=== PATIENT | female | born 1975 | race Hispanic/Latino ===

== ENCOUNTER 2024-01-30 18:07 | Observation (INO) | payer BC ==
[2024-01-30] MEDS ORDERED: ASPIRIN 81 MG CHEWABLE TABLET ONE (18:42)
[2024-01-30] MEDS ORDERED: NITROGLYCERIN 0.4 MG/TAB SL ONE (18:42)
[2024-01-30 18:43] LABS: Absolute Eosinophils 0.1 K/uL (0-0.5); Absolute Lymphocytes (CBC) 2.4 K/uL (0.7-4.9); Absolute Monocytes 0.5 K/uL (0.1-1.3); Absolute Neutrophil 4.4 K/uL (1.8-8.0); Basophils % 0.6 % (0-1.3); Hematocrit 40.6 % (36.0-45.0); Hemoglobin 13.2 g/dL (12.0-15.0); Lymphocytes % 31.9 % (15.3-44.8); MCH 29.9 pg (27.0-35.0); MCHC 32.6 g/dL (32.0-36.0); MCV 91.9 fL (80-100); MPV 9.9 fL (7.6-11.3); Monocytes % 6.2 % (3.3-12.3); Neutrophils % 59.3 % (41.7-73.7); Platelets 223 thou/uL (152-406); RBC Red Blood Cell Count 4.42 M/uL (3.86-4.86)
[2024-01-30 18:48] LABS: PT Prothrombin Time 10.5 SECONDS (9.4-12.5); Protime INR 0.94
[2024-01-30 19:04] LABS: ALT/SGPT 32 U/L (13-56); Albumin 3.8 g/dL (3.4-5.0); Albumin/Globulin Ratio 1.1 (1.1-1.8); Alkaline Phosphatase 142 U/L (45-117); BUN Blood Urea Nitrogen 15 mg/dL (7-18); Bicarbonate 24 mEq/L (21-32); Bilirubin Total 0.2 mg/dL (0.2-1.0); Globulin 3.5 g/dL (2.3-3.5); Glomerular Filtration Rate 76 ml/min (=/>90); Glucose Level 151 mg/dL (74-106); NT PRO-BNP 36 pg/mL (<125); Protein, Total 7.3 g/dL (6.4-8.2); Sodium Level 139 mEq/L (136-145); Troponin High Sensitivity 4.1 pg/mL (<58.9)
[2024-01-30 19:06] LABS: AST/SGOT 20 U/L (15-37); Bilirubin Direct < 0.2 mg/dL (0-0.2); Magnesium 1.9 mg/dL (1.6-2.4)
--- NOTE | 2024-01-30 20:15 | RAD REPORT ---
EXAM DESCRIPTION: US - Extremity Venous Uni Ltd - 01/30/2024 7:09 pm CLINICAL HISTORY: Pain COMPARISON: None. TECHNIQUE: Real-time sonographic evaluation of the right lower extremity deep venous system was perf ormed. FINDINGS: Normal compressibility, flow augmentation, phasic flow and spontaneous flow is identified in the right lower extremity deep venous system. No intraluminal filling defects seen. IMPRESSION: No DVT in the right lower extremity.
--- NOTE | 2024-01-30 20:15 | RAD REPORT ---
EXAM DESCRIPTION: Roberta Single View01/30/2024 6:37 pm CLINICAL HISTORY: CHEST PAIN COMPARISON: No comparisons TECHNIQUE: Portable AP view of the chest. FINDINGS: The lungs are clear. No pneumothorax or effusion. The cardiomediastinal contours are unre markable. IMPRESSION: No acute cardiopulmonary process.
--- NOTE | 2024-01-30 20:31 | RAD REPORT ---
EXAM DESCRIPTION: CT - Chest For Pe Angio - 01/30/2024 7:50 pm CLINICAL HISTORY: Chest pain;Dyspnea COMPARISON: No comparisons TECHNIQUE: Thin axial CT images of the chest were obtained following administration of iodinated co ntrast intravenously. Multiplanar reconstructions, and maximum intensity projection reconstructions w ere generated and reviewed. Exam utilizes a protocol for optimal evaluation of pulmonary arterial yuly e. All CT scans are performed using dose optimization technique as appropriate and may include automated exposure control or mA/KV adjustment according to patient size. FINDINGS: Pulmonary arteries are normal. No emboli or other suspicious finding. No acute or signific ant aorta findings. No mass or infiltrate in the lung parenchyma, although exclusion of the posterior lung bases limits e valuation. No pleural thickening or pleural effusion. No pneumothorax. No abnormal mediastinal or hilar masses or lymphadenopathy seen. No chest wall mass or abnormal axill iary lymphadenopathy. IMPRESSION: No evidence of acute central pulmonary emboli. No other acute findings are identified on this CT study.
[2024-01-30] MEDS ORDERED: HYDROCODONE/APAP 7.5/325 MG TAB ONE (20:37)
--- NOTE | 2024-01-30 21:03 | ER ---
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 21:51 Coronavirus screen: At this time, the client does not indicate any symptoms associated al5 with coronavirus-19. Ebola Screen: No symptoms or risks identified at this time. Initial Sepsis Screen: Does the patient meet any 2 criteria? No. Patient's initial sepsis screen is negative. Does the patient have a suspected source of infection? No. Patient's initial sepsis screen is negative. Risk Assessment: Do you want to hurt yourself or someone else? Patient reports no desire to harm self or others. 21:51 Acuity: LAUREL 2 al5 21:51 Method Of Arrival: Ambulatory al5 21:52 Onset of symptoms was January 30, 2024. al5 Triage Assessment: 18:18 General: Appears distressed, uncomfortable, Behavior is cooperative, anxious. Pain: db Complains of pain in chest. Neuro: Level of Consciousness is awake, alert, obeys commands, Oriented to person, place, time, situation, Speech is normal. Cardiovascular: Capillary refill < 3 seconds Patient's skin is warm and dry. Respiratory: Reports shortness of breath Airway is patent Respiratory effort is even, unlabored, Respiratory pattern is regular, symmetrical, Breath sounds are clear Onset: The symptoms/episode began/occurred just prior to arrival. 21:52 Respiratory: the patient has mild shortness of breath. 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 - Infectious Disease History:: Denies. - Social history:: Smoking status: Patient denies any tobacco usage or history of. Screenin:51 [facility] ED Fall Risk Assessment (Adult) History of falling in the last 3 months, ko1 including since admission No falls in past 3 months (0 pts) Confusion or Disorientation No (0 pts) Intoxicated or Sedated No (0 pts) Impaired Gait No (0 pts) Mobility Assist Device Used No (0 pt) Altered Elimination No (0 pt) Score/Fall Risk Level 0 - 2 = Low Risk Oriented to surroundings, Maintained a safe environment, Educated pt \T\ family on fall prevention, incl call for assistance when getting out of bed, Assessed \T\ reinforced patient's understanding of fall precautions, Hourly rounding (assess needs \T\ fall precautionary measures) done. Abuse screen: Denies threats or abuse. Denies injuries from another. Nutritional screening: No deficits noted. Tuberculosis screening: No symptoms or risk factors identified. Assessment: 18:51 General: Appears uncomfortable, obese, Behavior is cooperative, anxious, drowsy. Pain: ko1 Complains of pain in right leg. Neuro: No deficits noted. Cardiovascular: Reports chest pain, Rhythm is regular. Respiratory: No deficits noted. Airway is patent Trachea midline Respiratory effort is even, unlabored, Respiratory pattern is regular, symmetrical. GI: No deficits noted. : No deficits noted. EENT: No deficits noted. Derm: No deficits noted. Musculoskeletal: No deficits noted. 19:50 General: Appears in no apparent distress. Behavior is calm, cooperative. Pain: al5 Complains of pain in right leg. Neuro: Level of Consciousness is awake, alert, obeys commands, Oriented to person, place, time, situation. Cardiovascular: Reports chest pain, Capillary refill < 3 seconds Patient's skin is warm and dry. Respiratory: Airway is patent Respiratory effort is even, unlabored, Respiratory pattern is regular, symmetrical. GI: No signs and/or symptoms were reported involving the gastrointestinal system. : No signs and/or symptoms were reported regarding the genitourinary system. EENT: No signs and/or symptoms were reported regarding the EENT system. Derm: Skin is intact, Skin is pink, warm \T\ dry. normal. Musculoskeletal: Reports pain in right leg. 21:00 Reassessment: Patient appears in no apparent distress at this time. No changes from al5 previously documented assessment. Patient and/or family updated on plan of care and expected duration. Pain level reassessed. Patient is alert, oriented x 3, equal unlabored respirations, skin warm/dry/pink. 22:00 Reassessment: Patient appears in no apparent distress at this time. Patient and/or al5 family updated on plan of care and expected duration. Pain level reassessed. Patient is alert, oriented x 3, equal unlabored respirations, skin warm/dry/pink. Patient states feeling better. 23:00 Reassessment: Patient appears in no apparent distress at this time. No changes from al5 previously documented assessment. Patient and/or family updated on plan of care and expected duration. Pain level reassessed. Patient is alert, oriented x 3, equal unlabored respirations, skin warm/dry/pink. Vital Signs: 18:13 BP 211 / 98; Pulse 77; Resp 16; Temp 98.5(O); Pulse Ox 97% on R/A; db 18:51 BP 155 / 99; Pulse 72; Resp 15; Pulse Ox 98% ; ko1 19:00 BP 152 / 88; Pulse 75; Resp 18; Pulse Ox 99% on R/A; al5 19:30 BP 115 / 70; Pulse 70; Resp 16; Pulse Ox 99% on R/A; al5 20:00 BP 141 / 79; Pulse 67; Resp 16; Pulse Ox 100% on R/A; al5 20:30 BP 115 / 71; Pulse 65; Resp 18; Pulse Ox 99% on R/A; al5 20:33 Weight 117.93 kg; Height 5 ft. 6 in. ; al5 21:30 BP 151 / 51; Pulse 66; Resp 18; Pulse Ox 97% on R/A; al5 20:33 Body Mass Index 41.96 (117.93 kg, 167.64 cm) al5 ED Course: 18:08 Patient arrived in ED. im 18:08 Gauri Flores PA-C is PHCP. sb4 18:08 Rodney Bird MD is Attending Physician. sb4 18:18 Arm band placed on Patient placed in waiting room. db 18:25 Initial lab(s) drawn, by me, sent to lab. EKG done, by ED staff, reviewed by Gauri Flores PA-C. 18:29 Inserted saline lock: 20 gauge in right antecubital area, using aseptic technique. db Blood collected. Flushed with 10 mL NS. 18:39 XRAY Chest (1 view) In Process Unspecified. EDMS 18:51 Patient has correct armband on for positive identification. Bed in low position. Call ko1 light in reach. Side rails up X2. Provided Education on: meds. Pulse ox on. NIBP on. Door closed. Noise minimized. Lights dimmed. Warm blanket given. Pillow given. 18:54 Ashleigh Hatfield, RN is Primary Nurse. ko1 19:11 Extremity Venous Uni Ltd US In Process Unspecified. EDMS 19:52 CT Chest For PE Angio In Process Unspecified. EDMS 21:02 Carlos Alberto Bautista MD is Hospitalizing Provider. sb4 21:52 Triage completed. al5 21:52 No provider procedures requiring assistance completed. al5 23:43 Patient admitted, IV remains in place. al5 Administered Medications: 18:51 Drug: Aspirin PO Chewable Tablet 162 mg PO once Route: PO; ko1 20:26 Follow up: Response: No adverse reaction; Marked relief of symptoms al5 18:51 Drug: Nitroglycerin Sublingual 0.4 mg Sublingual once; every five minute if needed x3 ko1 Route: Sublingual; 20:26 Follow up: Response: No adverse reaction; Marked relief of symptoms al5 20:42 Drug: Hydrocodone-Acetaminophen PO (7.5 mg-325 mg) 1 tabs PO once Route: PO; al5 21:52 Follow up: Response: No adverse reaction; Pain is decreased al5 23:42 Follow up: Response: No adverse reaction; Pain is decreased al5 Medication: 18:51 VIS not applicable for this client. ko1 Outcome: 21:02 Decision to Hospitalize by Provider. sb4 01/30 00:17 Admitted to Med/surg accompanied by nurse, via wheelchair, room 415, with chart, Report al5 called to adal Condition: good Instructed on the need for admit, 00:18 Patient left the ED. al5 Signatures: Dispatcher [employer] EDMN Ashleigh Hatfield, RN RN ko1 Christina Maciel RN Gauri Amaya PA-C PAPerla sb4 Tamika Berg Amanda, RN RN al5 Corrections: (The following items were deleted from the chart) 01/29 20:26 20:26 Nitroglycerin Sublingual 0.4 mg Sublingual al5 al5 23:53 23:50 General: Appears in no apparent distress. Behavior is calm, cooperative, al5 [facility] :53 23:50 Pain: Complains of pain in right leg al5 [facility] :53 23:50 Neuro: Level of Consciousness is awake, alert, obeys commands, Oriented to al5 person, place, time, situation, [facility] 53 23:50 Cardiovascular: Capillary refill < 3 seconds Patient's skin is warm and dry. al5 [facility] :53 23:50 Respiratory: Airway is patent Respiratory effort is even, unlabored, Respiratory al5 pattern is regular, symmetrical, [facility] :53 23:50 Cardiovascular: Reports chest pain, al5 [facility] :53 23:50 GI: No signs and/or symptoms were reported involving the gastrointestinal system. al5 [facility] :53 23:50 : No signs and/or symptoms were reported regarding the [facility]ourinary system. [facility] EENT: No signs and/or symptoms were reported regarding the EENT system. al5 [facility] :53 23:50 Derm: Skin is intact, Skin is pink, warm \T\ dry. normal, Skin temperature is warm al5 [facility] :53 23:50 Musculoskeletal: Reports pain in right leg al al
--- NOTE | 2024-01-30 21:03 | EDPHYS ---
Physician Documentation [facility] Name: Mojgan Ford Age: 48 yrs Sex: Female : 1975 Arrival Date: 01/30/2024 Time: 18:07 Bed 16 Private MD: ED Physician Rodney Bird HPI: 01/29 18:21 This 48 yrs old Female presents to ER via Unassigned with complaints of Shortness Of sb4 Breath, Leg Pain, Chest Pressure. 18:21 The patient or guardian reports chest pain that is located primarily in the substernal sb4 area. Onset: just prior to arrival. The pain radiates to the left arm, left jaw. Associated signs and symptoms: Pertinent positives: dizziness, lightheadedness, shortness of breath. The chest pain is described as a heaviness. Modifying factors: The symptoms are alleviated by nothing. the symptoms are aggravated by nothing. The patient has not experienced similar symptoms in the past. 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 - Infectious Disease History:: Denies. - Social history:: Smoking status: Patient denies any tobacco usage or history of. ROS: 18:24 Constitutional: Negative for fever, chills, and weight loss, sb4 18:24 Cardiovascular: Positive for chest pain, 18:24 Respiratory: Positive for shortness of breath, 18:24 MS/extremity: Positive for pain, of the right leg, 18:24 Neuro: Positive for dizziness, 18:24 All other systems are negative, Exam: 18:24 Head/Face: Normocephalic, atraumatic. Eyes: Extra-ocular motions intact. Periorbital sb4 areas with no swelling, redness, or edema. ENT: Mucous membranes moist. Cardiovascular: Regular rate and rhythm with a normal S1 and S2. Abdomen/GI: Soft, non-tender, no distension. Skin: Warm, dry with normal turgor. Normal color with no rashes, no lesions, and no evidence of cellulitis. MS/ Extremity: Pulses equal, no cyanosis. Neurovascular intact. Full, normal range of motion. 18:24 Constitutional: The patient appears alert, awake, anxious, in obvious distress, moderately distressed, uncomfortable, 18:24 Respiratory: mild respiratory distress is noted, Respirations: normal, Breath sounds: are clear throughout, 18:26 Musculoskeletal/extremity: DVT Exam: no tenderness, negative Homans' sign noted on sb4 exam, no appreciated bluish discoloration, no erythema, no increased warmth, pain, swelling, Vital Signs: 18:13 BP 211 / 98; Pulse 77; Resp 16; Temp 98.5(O); Pulse Ox 97% on R/A; db 18:51 BP 155 / 99; Pulse 72; Resp 15; Pulse Ox 98% ; ko1 19:00 BP 152 / 88; Pulse 75; Resp 18; Pulse Ox 99% on R/A; al5 19:30 BP 115 / 70; Pulse 70; Resp 16; Pulse Ox 99% on R/A; al5 20:00 BP 141 / 79; Pulse 67; Resp 16; Pulse Ox 100% on R/A; al5 20:30 BP 115 / 71; Pulse 65; Resp 18; Pulse Ox 99% on R/A; al5 20:33 Weight 117.93 kg; Height 5 ft. 6 in. ; al5 21:30 BP 151 / 51; Pulse 66; Resp 18; Pulse Ox 97% on R/A; al5 20:33 Body Mass Index 41.96 (117.93 kg, 167.64 cm) al5 MDM: 18:13 Patient medically screened. sb4 20:32 The patient was given aspirin in the Emergency Department. Scoring Tools HEART Score: sb4 History: ECG: Age: Risk Factors: 1 or 2 risk factors (1), Troponin: Total Score = 4. 21:02 Data reviewed: vital signs, nurses notes, lab test result(s), EKG, radiologic studies, sb4 and as a result, I will admit patient. Consideration of Admission/Observation Patient was admitted/placed on observation. Counseling: I had a detailed discussion with the patient and/or guardian regarding the historical points, exam findings, and any diagnostic results supporting the discharge/admit diagnosis, the presence of at least one elevated blood pressure reading (>120/80) during this emergency department visit, lab results, radiology results, the need for further work-up and treatment in the hospital. 01/29 18:19 Order name: Basic Metabolic Panel; Complete Time: 19:07 sb4 01/29 18:19 Order name: CBC with Diff; Complete Time: 18:49 sb4 01/29 18:19 Order name: LFT's; Complete Time: 19:07 sb4 01/29 18:19 Order name: Magnesium; Complete Time: 19:07 sb4 01/29 18:19 Order name: NT PRO-BNP; Complete Time: 19:07 sb4 01/29 18:19 Order name: PT-INR; Complete Time: 18:49 sb4 01/29 18:19 Order name: Troponin HS; Complete Time: 19:07 sb4 01/29 21:35 Order name: Urinalysis w/ reflexes EDMS 01/29 21:35 Order name: CBC with Automated Diff EDMS 01/29 21:35 Order name: CBC with Automated Diff EDMS 01/29 21:35 Order name: Comprehensive Metabolic Panel EDMS 01/29 21:36 Order name: Comprehensive Metabolic Panel EDMS 01/29 21:36 Order name: Troponin High Sensitivity EDMS 01/29 21:36 Order name: Troponin High Sensitivity EDMS 01/29 21:36 Order name: Troponin High Sensitivity EDMS 01/29 21:36 Order name: Troponin High Sensitivity EDMS 01/29 18:19 Order name: XRAY Chest (1 view); Complete Time: 20:17 sb4 01/29 18:20 Order name: CT Chest For PE Angio; Complete Time: 20:31 sb4 01/29 18:20 Order name: Extremity Venous Uni Ltd US; Complete Time: 20:17 sb4 01/29 18:19 Order name: EKG; Complete Time: 18:20 sb4 01/29 18:19 Order name: Cardiac monitoring; Complete Time: 18:41 sb4 01/29 18:19 Order name: EKG - Nurse/Tech; Complete Time: 18:29 sb4 01/29 18:19 Order name: IV Saline Lock; Complete Time: 18:29 sb4 01/29 18:19 Order name: Labs collected and sent; Complete Time: 18:29 sb4 01/29 18:19 Order name: O2 Per Protocol; Complete Time: 18:41 sb4 01/29 18:19 Order name: O2 Sat Monitoring; Complete Time: 18:41 sb4 EC:22 Rate is 73 beats/min. Rhythm is regular, Sinus Rhythm with Occasional PVCs. UT interval sb4 is normal at 160 msec. QRS interval is normal at 90 msec. QT interval is normal at 410 msec. No Q waves. T waves are Normal. No ST changes noted. Clinical impression: No evidence of ischemia. Interpreted by me. Reviewed by me. Administered Medications: 18:51 Drug: Aspirin PO Chewable Tablet 162 mg PO once Route: PO; ko1 20:26 Follow up: Response: No adverse reaction; Marked relief of symptoms al5 18:51 Drug: Nitroglycerin Sublingual 0.4 mg Sublingual once; every five minute if needed x3 ko1 Route: Sublingual; 20:26 Follow up: Response: No adverse reaction; Marked relief of symptoms al5 20:42 Drug: Hydrocodone-Acetaminophen PO (7.5 mg-325 mg) 1 tabs PO once Route: PO; al5 21:52 Follow up: Response: No adverse reaction; Pain is decreased al5 23:42 Follow up: Response: No adverse reaction; Pain is decreased al5 Disposition Summary: 01/30/24 21:02 Hospitalization Ordered Notes: Hospitalization Status: Observation sb4 Provider: Carlos Alberto Bautista Location: Telemetry/MedSurg (observation) sb4 Condition: Fair sb4 Problem: new sb4 Symptoms: have improved sb4 Bed/Room Type: Standard sb4 Room Assignment: 415(01/30/24 23:02) Diagnosis - Chest pain, unspecified sb4 - Essential (primary) hypertension sb4 Forms: - Medication Reconciliation Form sb4 - SBAR form sb4 - Leadership Thank You Letter sb4 Addendum: 02/01/2024 09:44 I was immediately available for consultation during this patient's visit. I did not e c2 personally see the patient or discuss the patient with the LORENZO. . Signatures: Dispatcher [employer] Jessenia Dye RN RN cg Ashleigh Hatfield RN RN ko1 Christina Maciel RN RN db Brown, Sophia, ANTONIA KNIGHT sb4 Rodney Bird MD MD ec2 Linda Barnes RN RN al5 Corrections: (The following items were deleted from the chart) 01/29 18:20 18:20 Extremity Venous Uni Ltd+[email or web address] ordered. EDMS EDMS 23:02 21:02 sb4 cg
--- NOTE | 2024-01-30 21:30 | P.HP ---
Certification for Inpatient Patient admitted to: Observation With expected LOS: <2 Midnights Practitioner: I am a practitioner with admitting privileges, knowledge of patient current condition, hospital course, and medical plan of care. Services: Services provided to patient in accordance with Admission requirements found in Title 42 Section 412.3 of the Code of Federal Regulations Patient History Date of Service: 01/31/24 Reason for admission: chest Pain History of Present Illness: 48 yrs old Female with past medical history of hypertension and asthma was brought to ER with Shortness Of Breath, Leg Pain, Chest Pressure. The patient states that chest pain is located primarily in the substernal area which started today, the pain radiates to the left arm, left jaw. Associated with dizziness and lightheadedness. Chest pain is described as heaviness. No change positions. No previous history of the history. No fever or chills. Denies any diaphoresis. No nausea vomiting or diarrhea. No sick contacts. The patient was assessed in the ER and is admitted for further management of chest pain rule out ACS Allergies No Known Allergies Allergy (Unverified 01/31/24 00:42) - Past Medical/Surgical History Past Medical History: Reviewed- Non-Contributory -: Hypertension, asthma Past Surgical History: Reviewed- Non-Contributory - Family History Family History: Reviewed- Non-Contributory - Social History Smoking Status: Never smoker Review of Systems 10-point ROS is otherwise unremarkable Physical Examination - Vital Signs Temperature: 98.5 F Blood Pressure: 210/98 Pulse: 76 Respirations: 18 Pulse Ox (%): 94 - Physical Exam General: Alert, Oriented x3, Mild distress HEENT: Atraumatic, Normocephalic Neck: Supple, 2+ carotid pulse no bruit Respiratory: Clear to auscultation bilaterally, Normal air movement Cardiovascular: Normal pulses, Regular rate/rhythm, Normal S1 S2 Capillary refill: <2 Seconds Gastrointestinal: Soft and benign, W/out hepatosplenomegaly Musculoskeletal: No clubbing, No swelling Integumentary: No rashes, No breakdown Neurological: Normal speech, Normal strength at 5/5 x4 extr, Sensation intact, Cranial nerves 3-12 intact Lymphatics: No axilla or inguinal lymphadenopathy - Studies Laboratory Data (last 24 hrs) 01/30/24 01/30/24 01/30/24 18:25 18:25 18:25 WBC 7.50 Hgb 13.2 Hct 40.6 Plt Count 223 PT 10.5 INR 0.94 Sodium 139 Potassium 4.0 BUN 15 Creatinine 0.92 Glucose 151 H Magnesium 1.9 Total Bilirubin 0.2 AST 20 ALT 32 Alkaline Phosphatase 142 H Assessment and Plan - Plan Chest pain rule out ACS Will trend cardiac enzymes Will monitor telemetry Started on aspirin and statin EKG did not show any acute changes suggestive of ischemia Patient denies any chest pain Will get an echocardiogram Cardiology consult Hypertensive urgency Hydralazine as needed Antihypertensives titrated Continue home medications and titrate as needed Hyperlipidemia Continue statin GI/DVT prophylaxis Advanced directive full code Discharge Plan: Home Plan to discharge in: 48 Hours - Advance Directives Does patient have a Living Will: No Does patient have a Durable POA for Healthcare: No - Code Status/Comfort Care Code Status: Full Code Time Spent Managing Pts Care (In Minutes): 48
[2024-01-30] MEDS ORDERED: ONDANSETRON 4 MG/2 ML VIAL IV PRN (21:31)
[2024-01-30] MEDS: ASPIRIN EC 81 MG TAB PO SCH (21:34)
[2024-01-30] MEDS ORDERED: HYDROCODONE/APAP 5/325 MG TAB PO PRN (21:35)
[2024-01-31 00:29] VITALS: O2SAT 97
[2024-01-31] MEDS ORDERED: HYDRALAZINE HCL 20 MG/ML VIAL IV PRN (01:02)
[2024-01-31] MEDS: MORPHINE 2 MG/ML SYR IV PRN (01:47)
[2024-01-31 03:35] VITALS: BMI 41.9
[2024-01-31 06:13] LABS: Absolute Eosinophils 0.2 K/uL (0-0.5); Absolute Lymphocytes (CBC) 2.6 K/uL (0.7-4.9); Absolute Monocytes 0.5 K/uL (0.1-1.3); Absolute Neutrophil 2.9 K/uL (1.8-8.0); Basophils % 0.5 % (0-1.3); Eosinophils % 2.5 % (0-4.4); Hematocrit 37.9 % (36.0-45.0); Hemoglobin 12.7 g/dL (12.0-15.0); Lymphocytes % 42.7 % (15.3-44.8); MCH 30.4 pg (27.0-35.0); MCHC 33.5 g/dL (32.0-36.0); MCV 90.7 fL (80-100); MPV 9.5 fL (7.6-11.3); Monocytes % 7.8 % (3.3-12.3); Neutrophils % 46.5 % (41.7-73.7); Nucleated Red Blood Cells % 0.2 % (0-0); Platelets 213 thou/uL (152-406); RBC Red Blood Cell Count 4.18 M/uL (3.86-4.86); Red Cell Distribution Width 13.8 % (12.1-15.2)
[2024-01-31 06:32] LABS: Albumin 3.3 g/dL (3.4-5.0); Albumin/Globulin Ratio 1.1 (1.1-1.8); Bilirubin Total 0.4 mg/dL (0.2-1.0); Globulin 3.1 g/dL (2.3-3.5); Protein, Total 6.4 g/dL (6.4-8.2)
[2024-01-31] MEDS: ENOXAPARIN 40 MG/0.4 ML SQ SCH (09:23)
[2024-01-31 12:56] LABS: Sqamous Epithelial <5 /HPF (None Seen); Urine Bacteria <20 /HPF (<20); Urine Bilirubin NEGATIVE (Negative); Urine Blood Negative (Negative); Urine Clarity Turbid (Clear); Urine Color Light-Yellow (Yellow); Urine Culture Reflex Order NOT NEEDED; Urine Glucose NEGATIVE (Negative); Urine Ketones NEGATIVE (Negative); Urine Microscopic Reflex YN ORDER UMIC; Urine Mucus Slight /HPF (None Seen); Urine Nitrite NEGATIVE (Negative); Urine Protein NEGATIVE (Negative); Urine RBC <5 /HPF (None Seen); Urine Urobilinogen Normal (Normal); Urine WBC <5 /HPF (<5)
[2024-01-31] MEDS: ACETAMINOPHEN 325 MG TABLET PO PRN (14:54)
--- NOTE | 2024-01-31 16:06 | P.CNS ---
Date of Consult: 01/31/24 Chief Complaint: chest Pain History of Present Illness: Patient presented with palpitations, chest pain, mid chest to upper epigastric area, no radiation, got relieved in the ER by morphine and NTG, patient has been under stress, denies SOB, no VOGEL, no syncope. Allergies No Known Allergies Allergy (Unverified 01/31/24 00:42) Home medications list reviewed: Yes - Past Medical/Surgical History -: Hypertension, asthma - Social History Alcohol use: No Caffeine use: No Place of Residence: Home Review of Systems 10-point ROS is otherwise unremarkable Physical Examination Temp Pulse Resp BP Pulse Ox 97.6 F 66 18 107/64 96 01/31/24 12:00 01/31/24 12:00 01/31/24 12:00 01/31/24 12:00 01/31/24 12:00 General: Alert, In no apparent distress HEENT: Atraumatic, PERRLA, Mucous membr. moist/pink, EOMI, Sclerae nonicteric Neck: Supple, 2+ carotid pulse no bruit, No LAD, Without JVD or thyroid abnormality Respiratory: Clear to auscultation bilaterally, Normal air movement Cardiovascular: Regular rate/rhythm, Normal S1 S2 Gastrointestinal: Normal bowel sounds, No tenderness Musculoskeletal: No tenderness Integumentary: No rashes Neurological: Normal gait, Normal speech, Normal tone, Normal affect Lymphatics: No axilla or inguinal lymphadenopathy Laboratory Data (last 24 hrs) 01/30/24 01/30/24 01/30/24 18:25 18:25 18:25 WBC 7.50 Hgb 13.2 Hct 40.6 Plt Count 223 PT 10.5 INR 0.94 Sodium 139 Potassium 4.0 BUN 15 Creatinine 0.92 Glucose 151 H Magnesium 1.9 Total Bilirubin 0.2 AST 20 ALT 32 Alkaline Phosphatase 142 H - Problems (1) Chest pain Current Visit: Yes Status: Acute Plan: atypical, most likely from esophageal spasm, cardiac enzymes are negative x3 outpatient follow up for stress test. (2) Palpitations Current Visit: Yes Status: Acute Plan: no events on tele outpatient follow up for 7 days event monitor. (3) HLD (hyperlipidemia) Current Visit: Yes Status: Acute Plan: continue lipitor 40 mg daily
[2024-01-31 16:27] VITALS: BP 140/78; TEMP 97.4
--- NOTE | 2024-01-31 16:58 | EKG ---
Test Date: 2024-01-30 Test Time: 18:20:56 Vat Operator: SALEEM MEASUREMENT RESULTS: Intervals: Rate: 73 NV: 160 QRSD: 90 QT: 410 QTc: 451 [place]: P: 42 NV: 160 QRS: 39 T: 55 INTERPRETIVE STATEMENTS: Sinus rhythm with occasional premature ventricular complexes Otherwise normal ECG No previous ECG available for comparison Electronically Signed On 01-31-24 16:56:12 CDT by Primitivo Swanson
--- NOTE | 2024-01-31 17:28 | P.DS ---
Admission Date: 01/30/24 Discharge Date: 01/31/24 Disposition: ROUTINE DISCHARGE Discharge Condition: GOOD Reason for Admission: chest Pain Vital Signs/Physical Exam: Temp Pulse Resp BP Pulse Ox 97.4 F 63 16 140/78 96 01/31/24 16:00 01/31/24 16:00 01/31/24 16:00 01/31/24 16:00 01/31/24 16:00 Laboratory Data at Discharge: WBC 6.20 thou/uL (4.3-10.9) 01/31/24 05:40 Hgb 12.7 g/dL (12.0-15.0) 01/31/24 05:40 Hct 37.9 % (36.0-45.0) 01/31/24 05:40 Plt Count 213 thou/uL (152-406) 01/31/24 05:40 PT 10.5 SECONDS (9.4-12.5) 01/30/24 18:25 INR 0.94 01/30/24 18:25 Sodium 141 mEq/L (136-145) 01/31/24 05:40 Potassium 4.0 mEq/L (3.5-5.1) 01/31/24 05:40 BUN 16 mg/dL (7-18) 01/31/24 05:40 Creatinine 0.66 mg/dL (0.55-1.02) 01/31/24 05:40 Glucose 134 mg/dL (74-106) H 01/31/24 05:40 Magnesium 1.9 mg/dL (1.6-2.4) 01/30/24 18:25 Total Bilirubin 0.4 mg/dL (0.2-1.0) 01/31/24 05:40 AST 16 U/L (15-37) 01/31/24 05:40 ALT 27 U/L (13-56) 01/31/24 05:40 Alkaline Phosphatase 106 U/L (45-117) D 01/31/24 05:40 Home Medications: Aspirin [Aspirin EC 81 MG] 81 mg PO DAILY 30 Days #30 tab 01/31/24 Atorvastatin Calcium [Lipitor] 40 mg PO BEDTIME 30 Days #30 tab 01/31/24 New Medications: Aspirin [Aspirin EC 81 MG] 81 mg PO DAILY 30 Days #30 tab Atorvastatin Calcium [Lipitor] 40 mg PO BEDTIME 30 Days #30 tab Physician Discharge Instructions: 1. Please call and schedule a follow-up appointment with your PCP in 3-5 days - Please follow-up with your PCP for medication refills/adjustments 2. Please call and schedule a follow-up appointment with Dr. Swanson in one week -outpatient stress test and heart monitoring 3. Continue heart healthy diet 4. No activity restrictions 5. Return to the ED if symptoms worsen New medications Aspirin 81 mg daily Lipitor 40 mg daily Diet: AHA Activity: Ad alonzo Followup: CARLYN PALMER [Primary Care Provider] -
[2024-01-31] MEDS ORDERED: ATORVASTATIN 40 MG TAB PO SCH (21:00)
--- NOTE | 2024-02-01 09:04 | ECHO ---
HEIGHT: 5 ft 6 in WEIGHT: 260 lb 0 oz DATE OF STUDY: 01/31/[address]: Thomas Bautista DO 2-DIMENSIONAL: YES M.MODE: YES DOPPLER: YES COLOR FLOW: YES TDS: PORTABLE: YES DEFINITY: BUBBLE STUDY: DIAGNOSIS: CHEST PAIN CARDIAC HISTORY: CATHERIZATION: NO SURGERY: NO PROSTHETIC VALVE: NO PACEMAKER: NO MEASUREMENTS (cm) DIASTOLIC (NORMALS) SYSTOLIC (NORMALS) IVSd 1.2 (0.6-1.2) LA Diam 2.9 (1.9-4.0) LVEF 60-65% LVIDd 5.4 (3.5-5.7) LVIDs 3.8 (2.0-3.5) %FS 31% LVPWd 1.2 (0.6-1.2) Ao Diam 3.1 (2.0-3.7) 2 DIMENSIONAL ASSESSMENT: RIGHT ATRIUM: NORMAL LEFT ATRIUM: NORMAL RIGHT VENTRICLE: NORMAL LEFT VENTRICLE: NORMAL TRICUSPID VALVE: NORMAL MITRAL VALVE: NORMAL PULMONIC VALVE: NORMAL AORTIC VALVE: NORMAL PERICARDIAL EFFUSION: NONE AORTIC ROOT: NORMAL LEFT VENTRICULAR WALL MOTION: NORMAL DOPPLER/COLOR FLOW: NORMAL COMMENTS: 1. NORMAL LEFT VENTRICULAR SYSTOLIC FUNCTION, EJECTION FRACTION 60-65%, NORMAL WALL MOTION 2. NORMAL DIASTOLIC FUNCTION TECHNOLOGIST: ROBI HARDY
== END 2024-01-31 18:13 | disposition home or self-care (01) ==
LOC: ER 18:07 → ERHOLD 21:31 → 4TH 23:40
PROVIDERS: ADMIT Family Medicine; ATTEND Internal Medicine
DX: R07.9 Chest pain, unspecified (principal); R00.2 Palpitations; I10 Essential (primary) hypertension; E78.5 Hyperlipidemia, unspecified; J45.909 Unspecified asthma, uncomplicated; R06.02 Shortness of breath; M79.669 Pain in unspecified lower leg; Z79.82 Long term (current) use of aspirin
CPT/HCPCS: 93005; 93306; 85025 ×2; 81001; 80048; 36415; 83735; 85610; 80076; 84484 ×3; 80053; 83880; 71275; 71045; 93971; 99285; Q9967; J2270 ×2; G0378; J1650

== ENCOUNTER 2024-05-26 08:14 | Emergency (ER) | payer BC ==
--- NOTE | 2024-05-26 09:50 | RAD REPORT ---
Procedure: Chest Pa And Lat (2 Views) HISTORY: Cough COMPARISON: January 2024 FINDINGS: The lungs appear clear of acute infiltrate. No significant pleural effusion noted. The heart is mildly enlarged. IMPRESSION: No acute abnormality is displayed.
[2024-05-26 10:05] LABS: SARS-CoV-2 Antigen CONTROL BLUE LINE VIS/BG OK; SARS-CoV-2 Antigen Rapid Res Negative (Negative)
[2024-05-26] MEDS ORDERED: IPRATROPIUM BROM 0.5MG/2.5ML ONE (10:58)
[2024-05-26] MEDS ORDERED: ALBUTEROL 2.5 MG/3 ML NEB SOL ONE (10:58)
--- NOTE | 2024-05-26 11:12 | EDPHYS ---
Physician Documentation [facility] Name: Mojgan Ford Age: 48 yrs Sex: Female : 1975 Arrival Date: 05/26/2024 Time: 08:14 Bed 4 Private MD: ED Physician Dinesh Centeno HPI: 05/26 08:54 This 48 yrs old Female presents to ER via Ambulatory with complaints of Cough, bo1 Chest Congestion, Shortness Of Breath. 08:54 The patient or guardian reports cough, flu symptoms, Hx of asthma. Onset: The bo1 symptoms/episode began/occurred gradually, 2 day(s) ago, On Monday and was "seen" by telemedicine and has Rxes, not better. Associated signs and symptoms: Pertinent positives:. Associated signs and symptoms: Pertinent positives: fever, Chills. Sputum production - Green. 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 - Infectious Disease History:: Denies. - Social history:: Smoking status: Patient denies any tobacco usage or history of. ROS: 11:12 Constitutional: Negative for fever, chills, and weight loss bo1 11:12 Neck: Negative for pain with movement, pain at rest, 11:12 Cardiovascular: Negative for chest pain, 11:12 Respiratory: Positive for cough, with green sputum, shortness of breath, at rest. 11:12 Abdomen/GI: Negative for abdominal pain, 11:12 MS/extremity: Negative for pain, swelling, 11:12 Skin: Negative for rash, 11:12 All other systems are negative, Exam: 11:13 Constitutional: This is a well developed, well nourished patient who is awake, alert, bo1 and in no acute distress. 11:13 Constitutional: The patient appears alert, awake, comfortable, non-toxic, 11:13 Head/face: Exam is negative for acute changes, 11:13 Neck: Exam negative for acute changes, External neck: is normal, no acute changes, 11:13 Chest/axilla: Inspection: normal, 11:13 Cardiovascular: Rate: normal, Rhythm: regular, Pulses: no pulse deficits are appreciated, 11:13 Respiratory: the patient does not display signs of respiratory distress, Respirations: normal, Breath sounds: are clear throughout, decreased breath sounds, are located in both bases, 11:13 Musculoskeletal/extremity: DVT Exam: no pain, no swelling, no tenderness, 11:13 Skin: Warm and dry. Vital Signs: 08:26 BP 127 / 90; Pulse 89; Resp 20; Temp 98.3; Pulse Ox 98% on R/A; Weight 108.86 kg; ll1 Height 5 ft. 6 in. ; Pain 9/10; 10:03 BP 118 / 73; Pulse 73; Resp 15; Pulse Ox 97% ; jl7 08:26 Body Mass Index 38.74 (108.86 kg, 167.64 cm) ll1 08:26 Pain Scale: Adult ll1 MDM: 08:50 Medical Screening Exam initiated bo1 11:12 Differential Diagnosis: Bronchitis Upper Respiratory Infection Viral Syndrome Pneumonia bo1 Other Chronic bronchial spasm. Data reviewed: vital signs, lab test result(s), radiologic studies, plain films. 11:17 ED course: Pt is w/o pneumonia, will change the abx to cover mycoplasma. Pt to stop the bo1 doxycycline. Will add prednisone.. 05/26 08:58 Order name: Flu; Complete Time: 10:14 bo1 05/26 08:58 Order name: RSV; Complete Time: 10:14 bo1 05/26 08:58 Order name: SARS-COV-2 Antigen Rapid; Complete Time: 10:14 bo1 05/26 08:58 Order name: Chest Pa And Lat (2 Views) XRAY; Complete Time: 09:57 bo1 Administered Medications: 11:07 Drug: DuoNeb Nebulize (2.5 mg - 0.5 mg) 3 ml Nebulizer once Route: Nebulizer; jl7 11:24 Follow up: Response: No adverse reaction jl7 Disposition Summary: 12/15/24 11:11 Discharge Ordered Notes: Location: Home bo1 Problem: an acute exacerbation bo1 Symptoms: have improved bo1 Condition: Stable bo1 Diagnosis - Acute bronchitis, unspecified bo1 - Mild persistent asthma bo1 - Cough bo1 Followup: bo1 - With: Private Physician - When: Upon discharge from the Emergency Department - Reason: Recheck today's complaints, Continuance of care Discharge Instructions: - Discharge Summary Sheet bo1 - Acute Bronchitis, Adult bo1 - Cough, Adult bo1 Forms: - Work release form ll1 - Medication Reconciliation Form bo1 - Antibiotic Education bo1 - Prescription Opioid Use bo1 - Patient Portal Instructions bo1 - Leadership Thank You Letter bo1 Prescriptions: - azithromycin 500 mg Oral tablet - take 1 tablet ORAL route daily for 10 days; 10 tablet; Refills: 0, Product bo1 Selection Permitted - Prednisone 20 mg Oral Tablet - take 1 tablet ORAL route once daily for 5 days; 5 tablet; Refills: 0, Product bo1 Selection Permitted Signatures: Dispatcher [employer] Clinton Hi RN RN jl7 Clif Orourke RN RN ll1 Dinesh Centeno MD MD bo1 Corrections: (The following items were deleted from the chart) 08:58 08:58 Chest Pa And Lat (2 Views)+[email or web address] ordered. EDMS EDMS
--- NOTE | 2024-05-26 11:12 | ER ---
Nurse's Notes [facility] [place], [place] Name: Mojgan Ford Age: 48 yrs Sex: Female : 1975 Arrival Date: 05/26/2024 Time: 08:14 Bed 4 Private MD: Diagnosis: Acute bronchitis, unspecified;Mild persistent asthma;Cough Presentation: 05/26 08:26 Chief complaint: Patient states: Cough, congestion, body aches, fever, back pain, SOB ll1 since . Coronavirus screen: Client denies travel out of the [place] in the last 14 days. congestion, cough unrelated to allergies, fatigue, fever, headache, shortness of breath, Client presents with at least one sign or symptom that may indicate coronavirus-19. Standard/surgical mask placed on the client. Ebola Screen: Patient denies travel to an Ebola-affected area in the 21 days before illness onset. Initial Sepsis Screen: Does the patient meet any 2 criteria? No. Patient's initial sepsis screen is negative. Does the patient have a suspected source of infection? No. Patient's initial sepsis screen is negative. Risk Assessment: Do you want to hurt yourself or someone else? Patient reports no desire to harm self or others. Onset of symptoms was May 23, 2024. 08:26 Method Of Arrival: Ambulatory ll1 08:26 Acuity: LAUREL 3 ll1 Triage Assessment: 08:28 General: Appears uncomfortable, ill, Behavior is calm, cooperative, appropriate for ll1 age, Reports fever for fatigue for. EENT: Reports nasal congestion. Neuro: Reports headache weakness. Respiratory: Reports shortness of breath cough that is Onset: The symptoms/episode began/occurred . GI: Reports constipation. 08:30 Respiratory: the patient has mild shortness of breath. 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 - Infectious Disease History:: Denies. - Social history:: Smoking status: Patient denies any tobacco usage or history of. Screenin:32 [facility] [place] [facility] ED Fall Risk Assessment (Adult) History of falling in the last 3 months, jl7 including since admission No falls in past 3 months (0 pts) Confusion or Disorientation No (0 pts) Intoxicated or Sedated No (0 pts) Impaired Gait No (0 pts) Mobility Assist Device Used No (0 pt) Altered Elimination No (0 pt) Score/Fall Risk Level 0 - 2 = Low Risk Oriented to surroundings, Maintained a safe environment. Abuse screen: Denies threats or abuse. Denies injuries from another. Nutritional screening: No deficits noted. Tuberculosis screening: No symptoms or risk factors identified. Assessment: 08:32 General: Appears in no apparent distress. uncomfortable, Behavior is calm, cooperative, jl7 appropriate for age. Pain: Complains of pain in body aches, upper back Pain currently is 9 out of 10 on a pain scale. Neuro: Level of Consciousness is awake, alert, obeys commands, Oriented to person, place, time, situation. Cardiovascular: Heart tones present Patient's skin is warm and dry. Rhythm is regular. Respiratory: Reports shortness of breath cough that is pain with cough Airway is patent Respiratory effort is even, unlabored, Respiratory pattern is regular, symmetrical, Breath sounds are clear bilaterally. Derm: Skin is pink, warm \T\ dry. 10:03 Reassessment: Patient appears in no apparent distress at this time. No changes from jl7 previously documented assessment. Patient and/or family updated on plan of care and expected duration. Pain level reassessed. Patient is alert, oriented x 3, equal unlabored respirations, skin warm/dry/pink. Pt requested water, water provided at this time. Awaiting swab results. Vital Signs: 08:26 BP 127 / 90; Pulse 89; Resp 20; Temp 98.3; Pulse Ox 98% on R/A; Weight 108.86 kg; ll1 Height 5 ft. 6 in. ; Pain 9/10; 10:03 BP 118 / 73; Pulse 73; Resp 15; Pulse Ox 97% ; jl7 08:26 Body Mass Index 38.74 (108.86 kg, 167.64 cm) ll1 08:26 Pain Scale: Adult ll1 ED Course: 08:17 Patient arrived in ED. mr 08:18 Arm band placed on Patient placed in an exam room, on a stretcher. ll1 08:19 Clinton Melvin, RN is Primary Nurse. jl7 08:27 Triage completed. ll1 08:32 Patient has correct armband on for positive identification. Provided Education on: use jl7 of call booker. 08:50 Dinesh Centeno MD is Attending Physician. bo1 09:07 COVID swab sent to lab. Flu and/or RSV swab sent to lab. jl7 09:42 Chest Pa And Lat (2 Views) XRAY In Process Unspecified. EDMS 11:24 No provider procedures requiring assistance completed. Patient did not have IV access jl7 during this emergency room visit. Administered Medications: 11:07 Drug: DuoNeb Nebulize (2.5 mg - 0.5 mg) 3 ml Nebulizer once Route: Nebulizer; jl7 11:24 Follow up: Response: No adverse reaction jl7 Medication: 08:32 VIS not applicable for this client. jl7 Outcome: 11:11 Discharge ordered by . bo1 11:24 Discharged to home ambulatory, jl7 11:24 Condition: stable 11:24 Discharge instructions given to patient, Instructed on discharge instructions, follow up and referral plans. medication usage, Demonstrated understanding of instructions, follow-up care, medications, Prescriptions given X 2, 11:25 Patient left the ED. jl7 Signatures: Dispatcher [employer] EDSC Radha Stinson, Reg Reg mr Clinton Melvin, ATILIO TRIMBLE jl7 Clif Orourke RN RN ll1 Dinesh Centeno MD MD bo1
[2024-05-26 11:29] VITALS: TEMP 98.3
[2024-05-26 11:30] VITALS: BP 118/73; O2SAT 97
== END 2024-05-26 11:25 | disposition home or self-care (01) ==
LOC: ER 08:14
DX: J20.9 Acute bronchitis, unspecified (principal); J45.20 Mild intermittent asthma, uncomplicated; Z11.52 Encounter for screening for COVID-19
CPT/HCPCS: 36415; 87807; 87804 ×2; 71046; 99284; 87811; J7613; J7644